=== PATIENT | female | born 1960 | race Caucasian/White ===

== ENCOUNTER → 2016-11-21 | Outpatient (CLI) | payer BC ==
--- NOTE | 2016-11-21 12:31 | CT ---
EXAMINATION TYPE: CT brain wo con DATE OF EXAM: 11/21/2016 COMPARISON: NONE HISTORY: Exostosis CT DLP: 1067 mGycm Automated exposure control for dose reduction was used. FINDINGS: Central structures are midline. There is no evidence of hydrocephalus. No acute focal lesion, mass ef fect or midline shift is seen. I do not see evidence of intracranial blood. Visualized portions of the paranasal sinuses and mastoids are clear. There is a 6 mm exostosis arisin g from the right frontal bone. IMPRESSION: 1. NO ACUTE INTRACRANIAL ABNORMALITY. 2. TINY, BENIGN-APPEARING EXOSTOSIS DESCRIBED.
--- NOTE | 2016-11-21 15:16 | NM ---
EXAMINATION TYPE: NM bone/joint limited DATE OF EXAM: 11/21/2016 COMPARISON: NONE HISTORY: Exostosis TECHNIQUE: After the intravenous administration of 19.8 mCi Tc 99m MDP. Images acquired 3 hours pos t injection. Multiple views of the head and neck are submitted. Distribution of radiopharmaceutical about the skull is normal. There is no increased activity in the region of the patient's exostosis. There is increased activity in posterior elements of the mid cervi dawood spine. IMPRESSION: 1. NO EVIDENCE OF ACTIVITY IN THE PATIENT'S EXOSTOSIS. 2. EVIDENCE OF DEGENERATIVE CHANGE IN THE CERVICAL SPINE.
== END | disposition home or self-care (01) ==
LOC: RADNMMAIN 11:12
PROVIDERS: ATTEND Family Medicine
DX: M47.812 Spondylosis without myelopathy or radiculopathy, cervical region (principal); M89.9 Disorder of bone, unspecified
CPT/HCPCS: 70450; 78300; A9503

== ENCOUNTER → 2016-12-19 | Outpatient (CLI) | payer BC ==
--- NOTE | 2016-12-20 07:32 | MM ---
Reason for exam: screening (asymptomatic). Last mammogram was performed 1 year ago. History: Patient is postmenopausal and had first child at age 35. Family history of breast cancer in maternal cousin. Physical Findings: A clinical breast exam by your physician is recommended on an annual basis and results should be correlated with mammographic findings. MG 3D Screening Mammo W/Cad Bilateral CC and MLO view(s) were taken. Prior study comparison: December 26, 2015, right breast MG work up mamm w CAD RT. December 19, 2015, bilateral MG screening mammo w CAD. There are scattered fibroglandular densities. No suspicious abnormality. No significant changes when compared with prior studies. ASSESSMENT: Negative, BI-RAD 1 RECOMMENDATION: Routine screening mammogram of both breasts in 1 year.
== END | disposition home or self-care (01) ==
LOC: RADMAMWWP 08:58
PROVIDERS: ATTEND Family Medicine
DX: Z12.31 Encounter for screening mammogram for malignant neoplasm of breast (principal)
CPT/HCPCS: 77063; G0202

== ENCOUNTER 2016-12-23 16:15 | Emergency (ER) | payer BC ==
[2016-12-23] MEDS ORDERED: SODIUM CHLORIDE 0.9% 500 ML IV STA (17:10)
[2016-12-23] MEDS ORDERED: RX INFO: IV CONTRAST WAS GIVEN 1 EACH MISC MISCELLANE PRN (17:17)
[2016-12-23] MEDS ORDERED: diphenhydrAMINE 50 MG/ML 1 ML VIAL IVP ONE (17:23)
[2016-12-23] MEDS ORDERED: FAMOTIDINE 20 MG/2 ML VIAL IV ONE (17:23)
[2016-12-23] MEDS ORDERED: methylPREDNISolone SOD SUCCI 125 MG/2 ML VIAL IV ONE (17:23)
[2016-12-23 17:31] LABS: Basophils # (A) 0.1 k/uL (0-0.2); Basophils % (A) 0 %; CH 29.5; CHCM 31.8; Eosinophils # (A) 0.2 k/uL (0-0.7); Eosinophils % (A) 1 %; HCT 47.9 % (34.0-46.0); HDW 2.22; HGB 15.4 gm/dL (11.4-16.0); Luc # (Auto) 0.12; Luc % (Auto) 1; Lymphocytes # (A) 2.3 k/uL (1.0-4.8); Lymphocytes % (A) 16 %; MCHC 32.2 g/dL (31.0-37.0); MCV 93.1 fL (80.0-100.0); Mean Platelet Volume 7.7; Monocytes # (A) 0.6 k/uL (0-1.0); Monocytes % (A) 4 %; Neutrophils # (A) 10.7 k/uL (1.3-7.7); Neutrophils % (A) 77 %; RBC 5.14 m/uL (3.80-5.40); RDW 13.2 % (11.5-15.5); WBC (Perox) 13.76
--- NOTE | 2016-12-23 17:39 | ED ---
General Adult HPI - General Chief complaint: Back Pain/Injury Stated complaint: Back Pain-Sent by for CT Time Seen by Provider: 12/23/16 17:03 Source: patient Mode of arrival: ambulatory Limitations: no limitations - History of Present Illness Initial comments: 56 -year-old female patient presents to emergency department today sent in by her primary care physician Dr. Chacon for further evaluation of back pain. Patient states that 3 or 4 days ago she had onset of midthoracic back pain that radiates around her left side to her chest. Patient states the pain is intermittent. She states the pain lasts approximately 20 minutes when it comes on. She denies ever having pain similar to this in the past. She states she has been having some dizziness as well, states this is mostly with movement of her head. She states it does feel like the world is spinning, and that she feels like she is going to pass out when this happens. Patient denies any recent rash, fever, chills, shortness breath, abdominal pain, nausea, vomiting, constipation, numbness, tingling, weakness, hematuria, dysuria, urinary urgency , urinary frequency, headache, visual changes, or any other complaints. Patient does have chronic low back pain from a previous surgery however states that this hasn't been bothering her and does not feel related. She was recently diagnosed and treated with antibiotics for an ear infection. She states Dr. Chacon did perform a chest x-ray and EKG in the office did not see any abnormalities, and sent her in here to have a CT of her aorta. - Related Data Home Medications Medication Instructions Recorded Confirmed Cholecalciferol [Vitamin D3] 4,000 unit PO DAILY 12/23/16 12/23/16 Multivitamins, Thera [Multivitamin 1 tab PO DAILY 12/23/16 12/23/16 (formulary)] Previous Rx's Medication Instructions Recorded Cyclobenzaprine [Flexeril] 10 mg PO TID #15 tab 12/23/16 Meclizine HCl 25 mg PO BID #20 tablet 12/23/16 Naproxen 500 mg PO Q12H #20 tablet 12/23/16 Allergies Allergy/AdvReac Type Severity Reaction Status Date / Time cephalexin [From Keflex] Allergy Anaphylaxis Verified 12/23/16 19:39 ciprofloxacin [From Cipro] Allergy Anaphylaxis Verified 12/23/16 19:39 Iodinated Contrast- Oral and Allergy Anaphylaxis Verified 12/23/16 19:39 IV Dye sulfamethoxazole Allergy Anaphylaxis Verified 12/23/16 19:39 [From Bactrim] trimethoprim [From Bactrim] Allergy Anaphylaxis Verified 12/23/16 19:39 Review of Systems ROS Statement: Those systems with pertinent positive or pertinent negative responses have been documented in the HPI. ROS Other: All systems not noted in ROS Statement are negative. Past Medical History Past Medical History: Thyroid Disorder History of Any Multi-Drug Resistant Organisms: None Reported Past Surgical History: Back Surgery, Cholecystectomy, Hysterectomy, Orthopedic Surgery Additional Past Surgical History / Comment(s): 1/2 thyroidectomy, rt foot Past Psychological History: No Psychological Hx Reported Smoking Status: Current every day smoker Past Alcohol Use History: Occasional Past Drug Use History: None Reported General Exam Limitations: no limitations General appearance: alert, in no apparent distress, other (This is a well- developed, well-nourished adult female patient in no acute distress. Vital signs upon presentation are Temperature 98.6F, pulse 71, respirations 20, blood pressure 153/72, pulse ox 99% on room air.) Eye exam: Present: normal appearance, PERRL, EOMI. Absent: scleral icterus, conjunctival injection, periorbital swelling ENT exam: Present: normal exam, normal oropharynx, mucous membranes moist, TM's normal bilaterally Neck exam: Present: normal inspection. Absent: tenderness, meningismus, lymphadenopathy Respiratory exam: Present: normal lung sounds bilaterally. Absent: respiratory distress, wheezes, rales, rhonchi, stridor Cardiovascular Exam: Present: regular rate, normal rhythm, normal heart sounds. Absent: systolic murmur, diastolic murmur, rubs, gallop, clicks GI/Abdominal exam: Present: soft, normal bowel sounds, other (No Abdominal tenderness.). Absent: distended, tenderness, guarding, rebound, rigid Back exam: Present: normal inspection. Absent: tenderness (No tenderness over the thoracic spine), CVA tenderness (R), CVA tenderness (L), vertebral tenderness Neurological exam: Present: alert, oriented X3, CN II-XII intact Psychiatric exam: Present: normal affect, normal mood Skin exam: Present: warm, dry, intact, normal color. Absent: rash Course Vital Signs 12/23/16 12/23/16 12/23/16 16:32 17:35 19:19 Temperature 98.6 F 98.3 F Pulse Rate 71 66 77 Respiratory 20 20 17 Rate Blood Pressure 153/72 144/67 139/79 O2 Sat by Pulse 99 99 97 Oximetry 12/23/16 20:07 Temperature 97.8 F Pulse Rate 62 Respiratory 18 Rate Blood Pressure 155/88 O2 Sat by Pulse 100 Oximetry Medical Decision Making - Medical Decision Making 56-year-old female patient presented for evaluation of mid thoracic back pain that radiates around to her left side and into her chest. She was sent in by her primary care physician for a CT of her aorta. Lab work was reviewed and was unremarkable. 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 Chest x-ray was negative. CT of the aorta was negative. Patient informed of results. I did explain to her that I feel her pain is muscular skeletal in nature. Did give her a prescription for naproxen and Flexeril. As she did have a recent ear infection and her dizziness is induced with movement of her head will treat her with meclizine for this. She is instructed to follow-up with her primary care physician for further testing and reevaluation in one to days. She is instructed to return here immediately for any new, worsening, or concerning symptoms. She verbalizes understanding and agrees this plan. - Lab Data Result diagrams: 12/23/16 17:22 12/23/16 17:22 Lab Results 12/23/16 12/23/16 12/23/16 Range/Units 17:22 17:22 17:22 WBC 14.0 H (3.8-10.6) k/uL RBC 5.14 (3.80-5.40) m/uL Hgb 15.4 (11.4-16.0) gm/dL Hct 47.9 H (34.0-46.0) % MCV 93.1 (80.0-100.0) fL MCH 30.0 (25.0-35.0) pg MCHC 32.2 (31.0-37.0) g/dL RDW 13.2 (11.5-15.5) % Plt Count 226 (150-450) k/uL Neutrophils % 77 % Lymphocytes % 16 % Monocytes % 4 % Eosinophils % 1 % Basophils % 0 % Neutrophils # 10.7 H (1.3-7.7) k/uL Lymphocytes # 2.3 (1.0-4.8) k/uL Monocytes # 0.6 (0-1.0) k/uL Eosinophils # 0.2 (0-0.7) k/uL Basophils # 0.1 (0-0.2) k/uL PT (9.0-12.0) sec INR (<1.2) APTT (22.0-30.0) sec Sodium 139 (137-145) mmol/L Potassium 4.3 (3.5-5.1) mmol/L Chloride 105 (98-107) mmol/L Carbon Dioxide 24 (22-30) mmol/L Anion Gap 10 mmol/L BUN 17 (7-17) mg/dL Creatinine 0.80 (0.52-1.04) mg/dL Est GFR (MDRD) Af Amer >60 (>60 ml/min/1.73 sqM) Est GFR (MDRD) Non-Af >60 (>60 ml/min/1.73 sqM) Glucose 93 (74-99) mg/dL Calcium 9.6 (8.4-10.2) mg/dL Magnesium 2.0 (1.6-2.3) mg/dL Total Bilirubin 0.7 (0.2-1.3) mg/dL AST 24 (14-36) U/L ALT 34 (9-52) U/L Alkaline Phosphatase 104 (38-126) U/L Total Creatine Kinase 81 (30-135) U/L CK-MB (CK-2) 1.6 (0.0-2.4) ng/mL CK-MB (CK-2) Rel Index 2.0 Troponin I <0.012 (0.000-0.034) ng/mL Total Protein 7.3 (6.3-8.2) g/dL Albumin 4.4 (3.5-5.0) g/dL Amylase 44 (30-110) U/L Lipase 79 (23-300) U/L Urine Color Urine Appearance (Clear) Urine pH (5.0-8.0) Ur Specific [place] (1.001-1.035) Urine Protein (Negative) Urine Glucose (UA) (Negative) Urine Ketones (Negative) Urine Blood (Negative) Urine Nitrite (Negative) Urine Bilirubin (Negative) Urine Urobilinogen (<2.0) mg/dL Ur Leukocyte Esterase (Negative) Urine RBC (0-5) /hpf Urine WBC (0-5) /hpf Ur Squamous Epith Cells (0-4) /hpf Urine Bacteria (None) /hpf Urine Mucus (None) /hpf 12/23/16 12/23/16 Range/Units 17:22 17:22 WBC (3.8-10.6) k/uL RBC (3.80-5.40) m/uL Hgb (11.4-16.0) gm/dL Hct (34.0-46.0) % MCV (80.0-100.0) fL MCH (25.0-35.0) pg MCHC (31.0-37.0) g/dL RDW (11.5-15.5) % Plt Count (150-450) k/uL Neutrophils % % Lymphocytes % % Monocytes % % Eosinophils % % Basophils % % Neutrophils # (1.3-7.7) k/uL Lymphocytes # (1.0-4.8) k/uL Monocytes # (0-1.0) k/uL Eosinophils # (0-0.7) k/uL Basophils # (0-0.2) k/uL PT 10.6 (9.0-12.0) sec INR 1.0 (<1.2) APTT 24.6 (22.0-30.0) sec Sodium (137-145) mmol/L Potassium (3.5-5.1) mmol/L Chloride (98-107) mmol/L Carbon Dioxide (22-30) mmol/L Anion Gap mmol/L BUN (7-17) mg/dL Creatinine (0.52-1.04) mg/dL Est GFR (MDRD) Af Amer (>60 ml/min/1.73 sqM) Est GFR (MDRD) Non-Af (>60 ml/min/1.73 sqM) Glucose (74-99) mg/dL Calcium (8.4-10.2) mg/dL Magnesium (1.6-2.3) mg/dL Total Bilirubin (0.2-1.3) mg/dL AST (14-36) U/L ALT (9-52) U/L Alkaline Phosphatase (38-126) U/L Total Creatine Kinase (30-135) U/L CK-MB (CK-2) (0.0-2.4) ng/mL CK-MB (CK-2) Rel Index Troponin I (0.000-0.034) ng/mL Total Protein (6.3-8.2) g/dL Albumin (3.5-5.0) g/dL Amylase (30-110) U/L Lipase (23-300) U/L Urine Color Yellow Urine Appearance Clear (Clear) Urine pH 5.5 (5.0-8.0) Ur Specific [place] 1.014 (1.001-1.035) Urine Protein Negative (Negative) Urine Glucose (UA) Negative (Negative) Urine Ketones Trace H (Negative) Urine Blood Negative (Negative) Urine Nitrite Negative (Negative) Urine Bilirubin Negative (Negative) Urine Urobilinogen <2.0 (<2.0) mg/dL Ur Leukocyte Esterase Trace H (Negative) Urine RBC <1 (0-5) /hpf Urine WBC 2 (0-5) /hpf Ur Squamous Epith Cells 1 (0-4) /hpf Urine Bacteria Rare H (None) /hpf Urine Mucus Occasional H (None) /hpf - Radiology Data Radiology results: report reviewed, image reviewed 2 views of the chest are obtained and showed no focal airspace opacity, pleural effusion, or pneumothorax. The cardiac silhouette size is within normal limits. The osseous structures are intact. Impression by Dr. Davison shows no acute cardiopulmonary process. CT angios thoracic and abdominal aorta report reviewed in its entirety. Impression by Dr. Wagner Morales shows no acute osseous fracture, abnormal fluid collection, or evidence of solid organ injury and the thorax, abdomen, or pelvis. Specifically the thoracic aorta has normal appearance. The abdominal aorta has normal appearance as does the aortoiliac inflow. No aneurysmal dilation. No dissection. No evidence of hemorrhage. Disposition Clinical Impression: Vertigo, Thoracic back pain Disposition: HOME SELF-CARE Condition: Good Instructions: Vertigo (ED), Back Pain (ED) Additional Instructions: Take medications as directed. Follow-up with her primary care physician for recheck in 1-2 days. Return here immediately for any new, worsening, or concerning symptoms. Prescriptions: Cyclobenzaprine [Flexeril] 10 mg PO TID #15 tab Meclizine HCl 25 mg PO BID #20 tablet Naproxen 500 mg PO Q12H #20 tablet Referrals: Kyler Chacon MD [Primary Care Provider] - 1-2 days Time of Disposition: 19:55
[2016-12-23 17:40] LABS: Appearance,Urine Clear (Clear); Bacteria,Urine Rare /hpf; Bilirubin,Urine Negative (Negative); Glucose,Urine (UA) Negative (Negative); Ketones,Urine Trace (Negative); Leukocyte Esterase,Urine Trace (Negative); Mucus,Urine Occasional /hpf; Nitrite,Urine Negative (Negative); PH, Urine 5.5 (5.0-8.0); Particle Count 3259; Protein,Urine Negative (Negative); RBC,Urine <1 /hpf (0-5); Specific Gravity,Urine 1.014 (1.001-1.035); Squamous Epithelial Cell,Urine 1 /hpf (0-4); UA Billing (MACRO vs. MICRO) MICRO; Urobilinogen,Urine <2.0 mg/dL (<2.0); WBC,Urine 2 /hpf (0-5)
[2016-12-23 17:43] LABS: Partial Thromboplastin Time 24.6 sec (22.0-30.0); Prothrombin Time 10.6 sec (9.0-12.0)
[2016-12-23 17:49] LABS: ALT 34 U/L (9-52); AST 24 U/L (14-36); Alkaline Phosphatase 104 U/L (38-126); Amylase 44 U/L (30-110); Anion Gap 10 mmol/L; Blood Urea Nitrogen 17 mg/dL (7-17); Calcium 9.6 mg/dL (8.4-10.2); Carbon Dioxide 24 mmol/L (22-30); Chloride 105 mmol/L (98-107); Glucose 93 mg/dL (74-99); Non-African American GFR(MDRD) >60 (>60 ml/min/1.73 sqM); Potassium 4.3 mmol/L (3.5-5.1); Sodium 139 mmol/L (137-145); Total Bilirubin 0.7 mg/dL (0.2-1.3); Total Protein 7.3 g/dL (6.3-8.2)
[2016-12-23 18:00] LABS: Creatine Kinase 81 U/L (30-135)
[2016-12-23 18:12] LABS: Creatine Kinase MB 1.6 ng/mL (0.0-2.4); Troponin I <0.012 ng/mL (0.000-0.034)
--- NOTE | 2016-12-23 18:29 | XR ---
EXAMINATION TYPE: XR chest 2V DATE OF EXAM: 12/23/2016 COMPARISON: NONE HISTORY: Pain TECHNIQUE: Frontal and lateral views of the chest are obtained. FINDINGS: There is no focal air space opacity, pleural effusion, or pneumothorax seen. The cardiac silhouette size is within normal limits. The osseous structures are intact. IMPRESSION: No acute cardiopulmonary process.
--- NOTE | 2016-12-23 19:38 | CT ---
EXAMINATION TYPE: CT ANGIO THORACIC/ABD AORTA DATE OF EXAM: 12/23/2016 COMPARISON: None. HISTORY: Upper/Lower back pain. CT DLP: 1814.8 mGycm. Automated Exposure Control for Dose Reduction was Utilized. CONTRAST: CT scan of the thorax, abdomen and pelvis is performed without and with IV Contrast, patien t injected with 100 mL of Omnipaque 350. FINDINGS: LUNGS: The lungs are grossly clear, there is no concerning parenchymal mass or nodule identified. T here is no pleural effusion or pneumothorax seen. The tracheobronchial tree is patent. MEDIASTINUM: The thoracic aorta has normal appearance. The heart is unremarkable as is the pericardia l space. There are no greater than 1 cm hilar or mediastinal lymph nodes. OTHER: No additional significant abnormality is seen. LIVER/GB: No significant abnormality is appreciated. PANCREAS: No significant abnormality is seen. SPLEEN: No significant abnormality is seen. ADRENALS: No significant abnormality is seen. KIDNEYS: No significant abnormality is seen. BOWEL: No significant abnormality is seen. GENITAL ORGANS: No gross abnormality seen. LYMPH NODES: No greater than 1cm abdominal or pelvic lymph nodes are appreciated. OSSEOUS STRUCTURES: No significant abnormality is seen. ARTERIAL VASCULATURE: The abdominal aorta has normal appearance as does the aorto iliac inflow. No an eurysmal dilation. No dissection. No evidence of hemorrhage. OTHER: No significant additional abnormality is seen. IMPRESSION: NO ACUTE OSSEOUS FRACTURE, ABNORMAL FLUID COLLECTION, OR EVIDENCE OF SOLID ORGAN INJURY I N THE THORAX, ABDOMEN, OR PELVIS.
[2016-12-23 20:07] VITALS: BP 155/88; PULSE 62; RESP 18; TEMP 97.8
== END 2016-12-23 20:12 | disposition home or self-care (01) ==
LOC: EC 16:15
DX: M54.6 Pain in thoracic spine (principal); R42 Dizziness and giddiness; E07.9 Disorder of thyroid, unspecified; F17.200 Nicotine dependence, unspecified, uncomplicated; Z79.899 Other long term (current) drug therapy; Z88.1 Allergy status to other antibiotic agents; Z88.2 Allergy status to sulfonamides; Z91.041 Radiographic dye allergy status
CPT/HCPCS: 99284 ×2; 96374 ×2; 96375 ×3; 36415; 80053; 82150; 82550; 82553; 83690; 83735; 84484; 85025; 85610; 85730; 81001; 87086; 71020; 75635; 71275; J1200; J2930; Q9967

== ENCOUNTER → 2017-08-06 | Outpatient (CLI) | payer BC ==
--- NOTE | 2017-08-06 15:57 | US ---
EXAMINATION TYPE: US thyroid st tissue head/neck DATE OF EXAM: 08/06/2017 COMPARISON: 09/19/2014 CLINICAL HISTORY: 57-year-old female E04.1 Nontoxic single thyroid nodule. F/U previous. Patient stat us post right thyroidectomy. TECHNIQUE: Multiple sonographic images of the thyroid gland are obtained. FINDINGS: GLAND SIZE: Left Lobe: 5.0 x 2.1 x 1.6 cm Overall Parenchyma: heterogeneous Isthmus Thickness: 0.4 cm NODULES LEFT: # of nodules measured on left: 4 1. 0.4 X 0.4 x 0.3 cm hypoechoic solid nodule at the upper pole with well-defined margins; This no dule is taller than wide and shows intranodular vascularity. Prior size: 0.4 x 0.4 x 0.2 cm 2. 1.1 X 1.0 x 0.8 cm hypoechoic solid nodule at the mid pole with well-defined margins; This nodul e is wider than tall and shows intranodular vascularity. Prior size: 0.9 x 0.7 x 0.9 cm 3. 0.5 X 0.5 x 0.6 cm hypoechoic solid nodule at the lower pole with well-defined margins; This nodu le is wider than tall and shows intranodular vascularity. Prior size: 0.4 x 0.4 x 0.4 cm 4. 0.7 X 0.4 x 0.7 cm hypoechoic solid nodule at the mid/medial pole with well-defined margins; Thi s nodule is wider than tall and shows intranodular vascularity. Prior size: Not visualized on prior Bilateral neck scanned, no evidence of lymphadenopathy. Nodules scattered throughout left lobe. IMPRESSION: 1. Status post right thyroidectomy. 2. Multiple nodules on the left, largest measuring 1.1 cm versus 0.9 cm, previously, not significantl y changed. 3. A 7 mm left mid pole nodule may be new. Continued follow-up as indicated.
== END | disposition home or self-care (01) ==
LOC: RADUSWWP 15:12
PROVIDERS: ATTEND Family Medicine
DX: E04.2 Nontoxic multinodular goiter (principal); E89.0 Postprocedural hypothyroidism
CPT/HCPCS: 76536

== ENCOUNTER → 2017-11-19 | Outpatient (CLI) | payer BC ==
--- NOTE | 2017-11-19 21:04 | MR ---
EXAMINATION TYPE: MR iac wo/w con DATE OF EXAM: 11/19/2017 COMPARISON: CT 11/21/2016 HISTORY: 57-year-old female Vertigo / Left facial numbness TECHNIQUE: Multiplanar, multisequence images of the brain and brainstem were acquired before and aft er administration of 7.5 mL IV Gadavist. Diffusion weighted imaging was performed. Additional coned -down sequences through the internal auditory canals and posterior cranial fossa before and after IV contrast administration. FINDINGS: Diffusion weighted images demonstrate no evidence of an acute ischemic lesion in the brain. T2/FLAIR weighted sequences show no white matter signal abnormality. Midline structures demonstrate normal morphology. The craniocervical junction is normal. Ventricles and sulci are of normal caliber. There is no evidence of an acute intracranial hemorrhage, infarct, mass, mass-effect or an extra-axia l fluid collection. 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 There is no cerebellopontine angle mass. The internal auditory canals are symmetric. Brainstem and skull base abnormalities are not seen. Post contrast images demonstrate no evidence of pathologic enhancement in the posterior cranial shirley a or the internal auditory canals. There is no abnormal enhancement of the labyrinths. There is mild mucosal thickening within the ethmoid air cells and frontal sinuses. Globes appear inta ct IMPRESSION: 1.No acute intracranial abnormality seen. 2. 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 Clinically correla te. 3. Otherwise, no specific abnormality on acoustic MRI. 4. Mild chronic ethmoid and frontal sinus disease.
== END | disposition home or self-care (01) ==
LOC: RADMRIMAIN 07:27
PROVIDERS: ATTEND Otolaryngology
DX: Q01.9 Encephalocele, unspecified (principal)
CPT/HCPCS: 70553; A9581

== ENCOUNTER → 2018-01-08 | Outpatient (CLI) | payer BC ==
--- NOTE | 2018-01-17 16:08 | HM ---
HOLTER MONITOR REPORT [id number] Holter monitor shows sinus mechanism with a few short runs of non- sustained atrial tachycardia. No bradyarrhythmias. MMODL / IJN: [id number] /
== END | disposition home or self-care (01) ==
LOC: RADECHMAIN 12:35
PROVIDERS: ATTEND Psychiatry & Neurology Neurology
DX: I47.1 Supraventricular tachycardia (principal)
CPT/HCPCS: 93225; 93226

== ENCOUNTER → 2018-01-14 | Outpatient (CLI) | payer BC ==
--- NOTE | 2018-01-15 10:45 | MM ---
Reason for exam: screening (asymptomatic). Last mammogram was performed 1 year and 1 month ago. History: Patient is postmenopausal and had first child at age 35. Family history of breast cancer in maternal cousin. Physical Findings: A clinical breast exam by your physician is recommended on an annual basis and results should be correlated with mammographic findings. MG 3D Screening Mammo W/Cad Bilateral CC and MLO view(s) were taken. Prior study comparison: December 19, 2016, bilateral MG 3d screening mammo w/cad. December 26, 2015, right breast MG work up mamm w CAD RT. There are scattered fibroglandular densities. No suspicious abnormality. No significant changes when compared with prior studies. ASSESSMENT: Negative, BI-RAD 1 RECOMMENDATION: Routine screening mammogram of both breasts in 1 year.
== END | disposition home or self-care (01) ==
LOC: RADMAMWWP 11:24
PROVIDERS: ATTEND Family Medicine
DX: Z12.31 Encounter for screening mammogram for malignant neoplasm of breast (principal)
CPT/HCPCS: 77063; 77067

== ENCOUNTER → 2018-08-07 | Outpatient (CLI) | payer BC ==
--- NOTE | 2018-08-07 16:35 | US ---
EXAMINATION TYPE: US thyroid st tissue head/neck DATE OF EXAM: 08/07/2018 COMPARISON: US 08/06/2017 CLINICAL HISTORY: E04.1 Nontoxic uninodular goiter. GLAND SIZE: Right Lobe: Surgically absent Left Lobe: 4.0 x 1.3 x 1.6 cm Overall Parenchyma: heterogeneous Isthmus Thickness: 0.4 cm NODULES RIGHT: # of nodules measured on right: 0 LEFT: # of nodules measured on left: 4 1. 0.9 X 1.0 x 0.7 cm hypoechoic solid nodule at the mid pole with well-defined margins; . This no dule is wider than tall and shows intranodular vascularity. Prior size: 1.1 x 1.0 x 0.8 cm 2. 0.9 X 0.6 x 0.8 cm hypoechoic solid nodule at the upper pole with well-defined margins; . This n odule is wider than tall and shows intranodular vascularity. Prior size: 0.7 x 0.4 x 0.7 cm 3. 0.6 X 0.4 x 0.5 cm hypoechoic mixed nodule at the lower pole with well-defined margins; . This n odule is wider than tall and shows intranodular vascularity. Prior size: 0.5 x 0.5 x 0.6 cm 4. 0.4 X 0.3 x 0.4 cm hypoechoic solid nodule at the upper pole with well-defined margins; . This n odule is wider than tall and shows intranodular vascularity. Prior size: 0.4 x 0.3 x 0.4 cm ISTHMUS: # of nodules measured in the isthmus: 0 Bilateral neck scanned, no evidence of lymphadenopathy. Hypervascular, heterogeneous left thyroid gland IMPRESSION: Multinodular thyroid goiter with numerous left thyroid nodules appearing similar in size to the prior examination. Right lobe is surgically absent.
== END | disposition home or self-care (01) ==
LOC: RADUSWWP 15:41
PROVIDERS: ATTEND Family Medicine
DX: E04.2 Nontoxic multinodular goiter (principal); E89.0 Postprocedural hypothyroidism
CPT/HCPCS: 76536

== ENCOUNTER → 2018-11-16 | Outpatient (CLI) | payer BC ==
--- NOTE | 2018-11-16 09:19 | USB ---
Reason for exam: clinical finding. History: Patient is postmenopausal and had first child at age 35. Family history of breast cancer in maternal cousin. Indicated problem(s): pain in the left breast. Physical Findings: Nurse Summary: all soft, nodular, movable (nurse ts). US Breast RT Right complete breast ultrasound includes all four quadrants, the retroareolar region and axilla. Finding demonstrates no cystic or solid lesion seen. No suspicious findings. No ultrasound correlate for the patient's pain. These results were verbally communicated with the patient and result sheet given to the patient on 11/16/18. ASSESSMENT: Negative, BI-RAD 1 RECOMMENDATION: Return to routine screening mammogram schedule for both breasts. Back on schedule for December 2018.
== END | disposition home or self-care (01) ==
LOC: RADUSWWP 06:42
PROVIDERS: ATTEND Family Medicine
DX: N64.4 Mastodynia (principal)

== ENCOUNTER → 2019-01-21 | Outpatient (CLI) | payer BC ==
--- NOTE | 2019-01-22 13:49 | MM ---
Reason for exam: screening (asymptomatic). Last mammogram was performed 1 year ago. History: Patient is postmenopausal and had first child at age 35. Family history of breast cancer in maternal cousin and breast cancer in maternal aunt at age 75. Physical Findings: A clinical breast exam by your physician is recommended on an annual basis and results should be correlated with mammographic findings. MG 3D Screening Mammo W/Cad Bilateral CC and MLO view(s) were taken. Prior study comparison: January 14, 2018, bilateral MG 3d screening mammo w/cad. December 19, 2016, bilateral MG 3d screening mammo w/cad. There are scattered fibroglandular densities. No significant changes when compared with prior studies. ASSESSMENT: Benign, BI-RAD 2 RECOMMENDATION: Routine screening mammogram of both breasts in 1 year.
== END | disposition home or self-care (01) ==
LOC: RADMAMWWP 14:12
PROVIDERS: ATTEND Family Medicine
DX: Z12.31 Encounter for screening mammogram for malignant neoplasm of breast (principal)
CPT/HCPCS: 77063; 77067

== ENCOUNTER → 2019-09-15 | Outpatient (CLI) | payer BC ==
--- NOTE | 2019-09-15 10:05 | US ---
EXAMINATION TYPE: US thyroid st tissue head/neck DATE OF EXAM: 09/15/2019 COMPARISON: CLINICAL HISTORY: E04.1 THYROID NODULE. Follow up thyroid nodules. Right thyroid removed. No thyroi d meds. GLAND SIZE: Right Lobe- Surgically absent Left Lobe: 4.0 x 1.7 x 1.9 cm Overall Parenchyma: heterogeneous Isthmus Thickness: 0.4 cm NODULES LEFT: # of nodules measured on left: 4 1. 0.9 X 0.7 x 0.9 cm hypoechoic nodule at the mid pole with well-defined margins. This nodule is taller than wide and shows intranodular vascularity. Prior size: 0.7 x 1.0 x 0.7 cm 2. 0.7 X 0.5 x 0.7 cm hypoechoic nodule at the upper pole with well-defined margins. This nodule is taller than wide and shows intranodular vascularity. Prior size: 0.9 x 0.6 x 0.8 cm 3. 0.6 X 0.4 x 0.4 cm hypoechoic nodule at the lower pole with well-defined margins. This nodule is wide as tall and shows intranodular vascularity. Prior size: 0.6 x 0.4 x 0.5 cm 4. 0.5 X 0.4 x 0.3 cm hypoechoic nodule at the upper pole with well-defined margins. This nodule is wider than tall and shows intranodular vascularity. Prior size: 0.4 x 0.3 x 0.4 cm ISTHMUS: # of nodules measured in the isthmus: 0 Bilateral neck scanned, no evidence of lymphadenopathy. IMPRESSION: Postoperative changes right thyroid lobe. Stable nonspecific thyroid nodularity.
== END | disposition home or self-care (01) ==
LOC: RADUSWWP 09:28
PROVIDERS: ATTEND Otolaryngology
DX: Z98.890 Other specified postprocedural states (principal); E04.1 Nontoxic single thyroid nodule
CPT/HCPCS: 76536

== ENCOUNTER → 2020-01-27 | Outpatient (CLI) | payer BC ==
--- NOTE | 2020-01-28 13:47 | MM ---
Reason for exam: screening (asymptomatic). Last mammogram was performed 1 year ago. History: Patient is postmenopausal and had first child at age 35. Family history of breast cancer in maternal cousin and breast cancer in maternal aunt at age 75. Physical Findings: A clinical breast exam by your physician is recommended on an annual basis and results should be correlated with mammographic findings. MG 3D Screening Mammo W/Cad Bilateral CC and MLO view(s) were taken. XCCL view(s) were taken of the left breast. Prior study comparison: January 21, 2019, bilateral MG 3d screening mammo w/cad. January 14, 2018, bilateral MG 3d screening mammo w/cad. There are scattered fibroglandular densities. No significant changes when compared with prior studies. ASSESSMENT: Negative, BI-RAD 1 RECOMMENDATION: Routine screening mammogram of both breasts in 1 year.
== END | disposition home or self-care (01) ==
LOC: RADMAMWWP 07:02
PROVIDERS: ATTEND Family Medicine
DX: Z12.31 Encounter for screening mammogram for malignant neoplasm of breast (principal)
CPT/HCPCS: 77063; 77067

== ENCOUNTER → 2020-10-03 | Outpatient (CLI) | payer BC ==
--- NOTE | 2020-10-03 13:49 | US ---
EXAMINATION TYPE: US thyroid st tissue head/neck DATE OF EXAM: 10/03/2020 COMPARISON: US CLINICAL HISTORY: E04.1 Thyroid nodule. Right thyroidectomy GLAND SIZE: Right Lobe: surgically removed; no residual thyroid tissue seen. Left Lobe: 4.3 x 1.9 x 1.8 cm Overall Parenchyma: heterogeneous Isthmus Thickness: 0.4 cm NODULES LEFT: # of nodules measured on left: 4 largest seen of multiple nodules and as previously documen jose armando 1. 0.9 X 0.8 x 0.5 cm, upper pole lateral, mixed cystic and solid, hypoechoic nodule, which is wide r than tall, with smooth margins, without echogenic foci. Prior size: 0.7 x 0.5 x 0.7 cm 2. 0.4 X 0.5 x 0.4 cm, upper medial pole, solid or almost completely solid, hypoechoic nodule, whi ch is wider than tall, with smooth margins, without echogenic foci. Prior size: 0.5 x 0.4 x 0.3 cm 3. 1.0 X 1.0 x 0.9 cm, mid lower pole, mixed cystic and solid, hypoechoic nodule, which is wider th an tall, with smooth margins, with echogenic foci. Prior size: 0.9 x 0.7 x 0.9 cm 4. 0.5 X 0.4 x 0.4 cm, lower pole, spongiform, hypoechoic nodule, which is wide as is tall, with sm ooth margins, without echogenic foci. Prior size: 0.6 x 0.4 x 0.4 cm ISTHMUS: # of nodules measured in the isthmus: 0 Bilateral neck scanned: lymph node seen superior to left thyroid = 1.6 x 0.7 x 0.7cm. IMPRESSION: 1. Right thyroid gland is surgically absent. 2. Left thyroid nodules are overall similar to the prior exam. 2017 ACR TI-RADS LEVEL: TR-RADS 4 - Moderately Suspicious: Follow if > 1 cm, FNA if > 1.5 cm *Highest TI-RADS level nodule reported
== END | disposition home or self-care (01) ==
LOC: RADUSWWP 09:31
PROVIDERS: ATTEND Otolaryngology
DX: E04.1 Nontoxic single thyroid nodule (principal)
CPT/HCPCS: 76536

== ENCOUNTER → 2021-08-16 | Outpatient (CLI) | payer BC ==
--- NOTE | 2021-08-17 12:05 | MM ---
Reason for Exam: Screening (asymptomatic). Last mammogram was performed 1 year(s) and 6 month(s) ago. Patient History: Menarche at age 12. First Full-Term at age 35. Late child-bearing (after 30). Hysterectomy at age 37. Postmenopausal. Maternal cousin had breast cancer. Maternal aunt had breast cancer, age 75. Risk Values: Joyce 5 year model risk: 2.2%. NCI Lifetime model risk: 10.9%. Film Views: Bilateral CC views were taken. Bilateral MLO views were taken. Prior Study Comparison: 01/14/2018 Bilateral Screening Mammogram, [facility]. 01/21/2019 Bilateral Screening Mammogram, [facility]. 01/27/2020 Bilateral Screening Mammogram, [facility]. Tissue Density: There are scattered fibroglandular densities. Findings: Analyzed By CAD. Benign-appearing bilateral axillary lymph nodes are redemonstrated. There is no suspicious group of microcalcifications or new suspicious mass in either breast. Overall Assessment: Negative, BI-RAD 1 Management: Screening Mammogram of both breasts in 1 year. A clinical breast exam by your physician is recommended on an annual basis and results should be correlated with mammographic findings. Electronically signed and approved by: Zeb Gardner M.D.
== END | disposition home or self-care (01) ==
LOC: RADMAMWWP 18:15
PROVIDERS: ATTEND Family Medicine
DX: Z12.31 Encounter for screening mammogram for malignant neoplasm of breast (principal)
CPT/HCPCS: 77063; 77067

== ENCOUNTER → 2021-10-09 | Outpatient (CLI) | payer BC ==
--- NOTE | 2021-10-09 10:11 | US ---
EXAMINATION TYPE: US venous doppler duplex LE LT DATE OF EXAM: 10/09/2021 10:02 AM COMPARISON: NONE CLINICAL HISTORY: M25.562 LEFT KNEE PAIN. Left medial knee pain x 1 week, no injury, no h/o dvt SIDE PERFORMED: Left TECHNIQUE: The lower extremity deep venous system is examined utilizing real time linear array sonog abigail with graded compression, doppler sonography and color-flow sonography. VESSELS IMAGED: Common Femoral Vein Deep Femoral Vein Greater Saphenous Vein * Femoral Vein Popliteal Vein Small Saphenous Vein * Proximal Calf Veins (* superficial vessels) Left Leg: Negative for DVT *called office twice, no answer IMPRESSION: Grayscale, color doppler, spectral doppler imaging performed of the deep veins of the lo wer extremities. There is normal flow, compressibility, vascular waveforms.
== END | disposition home or self-care (01) ==
LOC: RADUSWWP 09:42
PROVIDERS: ATTEND Family Medicine
DX: M25.562 Pain in left knee (principal)

== ENCOUNTER → 2021-10-15 | Outpatient (CLI) | payer BC ==
--- NOTE | 2021-10-15 09:31 | US ---
EXAMINATION TYPE: US thyroid st tissue head/neck DATE OF EXAM: 10/15/2021 COMPARISON: NONE CLINICAL HISTORY: E04.1 THYROID NODULE. History of thyroid nodules. Right thyroidectomy GLAND SIZE: Right Lobe: Surgically absent Left Lobe: 4.6 x 1.8 x 1.8 cm Overall Parenchyma: heterogeneous Isthmus Thickness: 0.4 cm NODULES RIGHT: # of nodules measured on right: 0 LEFT: # of nodules measured on left: 2 1. 0.8 X 0.9 x 0.7 cm, upper , solid or almost completely solid, hypoechoic nodule, which is wider than tall, with smooth margins, without echogenic foci. Prior size: 0.9 x 0.8 x 0.5 cm 2. 1.2 X 1.0 x 1.0 cm, mid , solid or almost completely solid, hypoechoic nodule, which is wider t brown tall, with smooth margins, without echogenic foci. TR 4 Prior size: 1.0 x 1.0 x 0.9 cm ISTHMUS: # of nodules measured in the isthmus: 0 Bilateral neck scanned, no evidence of lymphadenopathy. IMPRESSION: Moderately suspicious nodule left lobe thyroid. Follow-up in one year is recommended. 2017 ACR TI-RADS LEVEL: TR-RADS 4 - Moderately Suspicious: Follow if > 1 cm, FNA if > 1.5 cm *Highest TI-RADS level nodule reported
== END | disposition home or self-care (01) ==
LOC: RADUSWWP 08:42
PROVIDERS: ATTEND Otolaryngology
DX: E04.1 Nontoxic single thyroid nodule (principal)
CPT/HCPCS: 76536

== ENCOUNTER → 2022-08-30 | Outpatient (CLI) | payer BC ==
--- NOTE | 2022-09-02 12:18 | MM ---
Reason for Exam: Screening (asymptomatic). Last mammogram was performed 1 year(s) and 1 month(s) ago. Patient History: Menarche at age 12. First Full-Term at age 35. Late child-bearing (after 30). Hysterectomy at age 37. Postmenopausal. Maternal cousin had breast cancer, age 34. Maternal aunt had breast cancer, age 75. Risk Values: Joyce 5 year model risk: 2.2%. NCI Lifetime model risk: 10.6%. Physical Findings: Physical Exam Performed Before Images Prior Study Comparison: 01/21/2019 Bilateral Screening Mammogram, [facility]. 01/27/2020 Bilateral Screening Mammogram, [facility]. 08/16/2021 Bilateral MG 3D screening mammo w/cad, [facility]. Tissue Density: There are scattered fibroglandular densities. Findings: Analyzed By CAD. Pattern appears symmetrical and stable. No significant interval change is evident. No suspicious groups of microcalcifications, spiculated or lobular masses, architectural distortion or other secondary signs of malignancy are mammographically apparent. Overall Assessment: Benign, BI-RAD 2 Management: Screening Mammogram of both breasts in 1 year. A negative mammogram report should not preclude additional follow up of suspicious palpable abnormalities. Patient should continue monthly self breast exam. A clinical breast exam by your physician is recommended on an annual basis and results should be correlated with mammographic findings. Electronically signed and approved by: Matias Grullon D.O. Radiologis
== END | disposition home or self-care (01) ==
LOC: RADMAMWWP 10:43
PROVIDERS: ATTEND Family Medicine
DX: Z12.31 Encounter for screening mammogram for malignant neoplasm of breast (principal); Z78.0 Asymptomatic menopausal state; Z80.3 Family history of malignant neoplasm of breast
CPT/HCPCS: 77063; 77067

== ENCOUNTER → 2022-12-13 | Outpatient (CLI) | payer BC ==
--- NOTE | 2022-12-13 12:28 | US ---
EXAMINATION TYPE: US thyroid st tissue head/neck DATE OF EXAM: 12/13/2022 COMPARISON: US CLINICAL INDICATION: Female, 62 years old with history of E04.1 NONTOXIC SINGLE THYROID NODULE; F/U n odules, right thyroid surgically absent GLAND SIZE: Left Lobe: 4.2 x 2.1 x 1.3 cm Overall Parenchyma: heterogenous Isthmus Thickness: 0.5 cm NODULES LEFT: # of nodules measured on left: 2 1. 1.1 X 1.0 x 0.9 cm, mid , solid or almost completely solid, hypoechoic nodule, which is wider th an tall, with smooth margins, without echogenic foci. Prior size: 1.2 x 1.0 x 1.0 cm 2. 0.9 X 0.7 x 0.7 cm, upper, solid or almost completely solid, hypoechoic nodule, which is wider than tall, with smooth margins, without echogenic foci. Prior size: 0.9 x 0.8 x 0.7 cm ISTHMUS: # of nodules measured in the isthmus: 0 Bilateral neck scanned, no evidence of lymphadenopathy. Multiple nodules left thyroid, largest two me asured, nodules appear stable. IMPRESSION: Mildly Suspicious: FNA if ? 2.5 cm; Follow if ? 1.5 cm at 1, 3, and 5 y 2017 ACR TI-RADS LEVEL: TR3 *Highest TI-RADS level nodule reported
== END | disposition home or self-care (01) ==
LOC: RADUSWWP 11:53
PROVIDERS: ATTEND Otolaryngology
DX: E04.2 Nontoxic multinodular goiter (principal)
CPT/HCPCS: 76536

== ENCOUNTER → 2023-09-01 | Outpatient (CLI) | payer BC ==
--- NOTE | 2023-09-02 09:10 | MM ---
Reason for Exam: Screening (asymptomatic). Last screening mammogram was performed 12 month(s) ago. Patient History: Menarche at age 12. First Full-Term at age 35. Late child-bearing (after 30). Hysterectomy at age 37. Postmenopausal. Maternal cousin had breast cancer, age 34. Maternal aunt had breast cancer, age 75. Risk Values: Joyce 5 year model risk: 2.3%. NCI Lifetime model risk: 10.3%. Prior Study Comparison: 01/27/2020 Bilateral Screening Mammogram, [facility]. 08/16/2021 Bilateral MG 3D screening mammo w/cad, [facility]. 08/30/2022 Bilateral MG 3D screening mammo w/cad, [facility]. Tissue Density: There are scattered areas of fibroglandular density. Findings: Analyzed By CAD. There is no suspicious group of microcalcifications or new suspicious mass in either breast. Overall Assessment: Negative, BI-RAD 1 Management: Screening Mammogram of both breasts in 1 year. . Patient should continue monthly self-breast exams. A clinical breast exam by your physician is recommended on an annual basis. This exam should not preclude additional follow-up of suspicious palpable abnormalities. Note on Joyce scores and lifetime risk: 1. A Joyce score greater than 3% is considered moderate risk. If this is the case, consider specialist referral to assess eligibility for a risk reducing agent. 2. If overall lifetime risk for the development of breast cancer is 20% or higher, the patient may qualify for future screening with alternating mammogram and breast MRI. Electronically signed and approved by: Cesario Dalal M.D. Radiologis
== END | disposition home or self-care (01) ==
LOC: RADMAMWWP 09:36
PROVIDERS: ATTEND Family Medicine
DX: Z12.31 Encounter for screening mammogram for malignant neoplasm of breast (principal); Z80.3 Family history of malignant neoplasm of breast; Z78.0 Asymptomatic menopausal state
CPT/HCPCS: 77063; 77067

== ENCOUNTER → 2023-12-22 | Outpatient (CLI) | payer MEDICARE, BC ==
--- NOTE | 2023-12-22 08:57 | CTL ---
EXAMINATION TYPE: CT Low Dose Lung DATE OF EXAM: 12/22/2023 8:15 AM CLINICAL INDICATION: Female, 63 years old with history of Z87.891 nicotine dependence; SMOKER , histo ry of tobacco use. COMPARISON: 12/23/2016. TECHNIQUE: Multiple axial non-contrast scans were obtained from approximately the lung apices through the upper abdomen. Coronal and sagittal reformatted images were obtained. Low dose technique was uti lized. CT DLP: 81 mGycm, Automated exposure control for dose reduction was used. CT Contrast: Contrast used: None Oral contrast used: None FINDINGS: ======== Lack of intravenous contrast and low dose technique limits the evaluation of the vascular and soft ti ssue structures. LUNGS: No evidence of pulmonary fibrosis. No evidence of focal consolidation, pneumothorax or pleural effusion. Centrilobular emphysema changes. Nodules: RUL: None. RML: None. RLL: None. [place]: None. LLL: None. AIRWAY: Patent and unremarkable. HEART: Size within normal limits. MEDIASTINUM: No gross evidence of adenopathy. VASCULATURE: No aortic aneurysm. MUSCULOSKELETAL: Moderate disc degeneration changes are present throughout the thoracolumbar spine. SOFT TISSUES/LYMPH NODES: Unremarkable. LOWER NECK: No significant findings. UPPER ABDOMEN: Gallbladder surgically absent. IMPRESSION: 1. No clinically significant pulmonary nodules. 2. Mild emphysema. CT LUNG RAD AND CT CHEST RECOMMENDATION: Lung-Rad 2 Benign Appearance or Behavior: Continue annual sc reening with LDCT in 12 months. S Modifier (other clinically significant findings): None Recommend smoking cessation (if current smoker), or continuation of smoking cessation (if prior smoke r). Annual screening for lung cancer with low-dose computed tomography is recommended in adults ages 55 to 77 years who have a 30 pack-year smoking history and currently smoke or have quit within the pa st 15 years. Screening should be discontinued once a person has not smoked for 15 years or develops a health problem that substantially limits life expectancy or the ability or willingness to have curat josse lung surgery. Lung rads 2021 [email or web address] [facility], , 12/22/2023 8:55 AM
== END | disposition home or self-care (01) ==
LOC: RADCTMAIN 07:33
PROVIDERS: ATTEND Family Medicine
DX: Z12.2 Encounter for screening for malignant neoplasm of respiratory organs (principal); J43.9 Emphysema, unspecified; F17.210 Nicotine dependence, cigarettes, uncomplicated
CPT/HCPCS: 71271

== ENCOUNTER → 2023-12-22 | Outpatient (CLI) | payer MEDICARE, BC ==
--- NOTE | 2023-12-22 08:41 | US ---
EXAMINATION TYPE: US thyroid st tissue head/neck DATE OF EXAM: 12/22/2023 COMPARISON: 12/13/2022 CLINICAL INDICATION: Female, 63 years old with history of E04.1 SINGLE NODULE; rt thyroidectomy, f/u nodules on left GLAND SIZE: Right Lobe: Surgically absent Left Lobe: 4.2 x 2.1 x 1.3 cm Overall Parenchyma: heterogeneous Isthmus Thickness: 0.5 cm NODULES RIGHT: Surgically absent LEFT: # of nodules measured on left: multiple, measured largest 2 1. 1.0 X 1.0 x 0.9 cm, mid , Prior size: 1.0 x 1.0 x 0.9 cm TIRADS Score: 4 TIRADS Category 4: Moderately Suspicious Composition: Solid or almost completely solid (2 points). Echogenicity: Hypoechoic (2 points). Shape: Wider than tall (0 points). Margin: Smooth (0 points). Echogenic foci: None or large comet-tail artifacts (0 points) Recommendation: If >1.5cm: FNA; If >1cm: Follow up at 1,2, 3,5 years 2. 1.0 X 0.8 x 0.7 cm, upper, Prior size: 0.9 x 0.7 x 0.7 cm TIRADS Score: 4 TIRADS Category 4: Moderately Suspicious Composition: Solid or almost completely solid (2 points). Echogenicity: Hypoechoic (2 points). Shape: Wider than tall (0 points). Margin: Smooth (0 points). Echogenic foci: None or large comet-tail artifacts (0 points) Recommendation: If >1.5cm: FNA; If >1cm: Follow up at 1,2, 3,5 years ISTHMUS: # of nodules measured in the isthmus: 0 Bilateral neck scanned, no evidence of lymphadenopathy. IMPRESSION: Stable left thyroid nodules that meet criteria for follow-up. 2017 ACR TI-RADS LEVEL: TR-RADS 4 - Moderately Suspicious: Follow if > 1 cm, FNA if > 1.5 cm *Highest TI-RADS level nodule reported [facility], , 12/22/2023 8:38 AM
== END | disposition home or self-care (01) ==
LOC: RADUSWWP 07:32
PROVIDERS: ATTEND Family Medicine
DX: E04.1 Nontoxic single thyroid nodule (principal)
CPT/HCPCS: 76536

== ENCOUNTER → 2024-09-03 | Outpatient (CLI) | payer MEDICARE ==
--- NOTE | 2024-09-03 17:00 | US ---
EXAMINATION TYPE: US thyroid st tissue head/neck DATE OF EXAM: 09/03/2024 COMPARISON: US CLINICAL INDICATION: Female, 64 years old with history of E04.1 NONTOXIC SINGLE THYROID NODULE; F/U TECHNIQUE: Grayscale and color Doppler imaging of the thyroid gland. FINDINGS: GLAND SIZE: Right Lobe: Surgically absent Left Lobe: 4.1 x 1.6 x 1.5 cm Overall Parenchyma: heterogeneous Isthmus Thickness: 0.5 cm NODULES LEFT: # of nodules measured on left: 2 1. 1.1 X 0.9 x 0.8 cm, mid , Prior size: 1.0 x 1.0 x 0.9 cm TIRADS Score: 4 TIRADS Category 4: Composition: Solid or almost completely solid (2 points). Echogenicity: Hypoechoic (2 points). Shape: Wider than tall (0 points). Margin: Smooth (0 points). Echogenic foci: None or large comet-tail artifacts (0 points) Recommendation: If >1.5cm: FNA; If >1cm: Follow up at 1,2, 3,5 years 2. 0.9 X 0.6 x 0.7 cm, upper , Prior size: 1.0 x 0.8 x 0.7 cm TIRADS Score: 4 TIRADS Category 4: Composition: Solid or almost completely solid (2 points). Echogenicity: Hypoechoic (2 points). Shape: Wider than tall (0 points). Margin: Smooth (0 points). Echogenic foci: None or large comet-tail artifacts (0 points) Recommendation: If >1.5cm: FNA; If >1cm: Follow up at 1,2, 3,5 years ISTHMUS: # of nodules measured in the isthmus: 0 Bilateral neck scanned, no evidence of lymphadenopathy. Sub-centimeter nodules left lobe, largest tw o measured to compare to prior. IMPRESSION: * Left thyroid nodules that meet criteria for follow-up in one year. * Surgically absent right thyroid. TI-RADS assessment score and recommendation for follow-up based on appropriate scoring and treatment protocols. TR1 Benign No FNA TR2 Not suspicious No FNA TR3: If nodule size is ? 2.5 cm, FNA is recommended. If nodule size is ? 1.5 cm, follow-up imaging at 1, 3, and 5 years is recommended. TR4: If nodule size is ? 1.5 cm, FNA is recommended. If nodule size is ? 1.0 cm, follow-up imaging at 1, 2, 3, and 5 years is recommended. TR5: If nodule size is ? 1.0 cm, FNA is recommended. If nodule size is ? 0.5 cm, annual follow-up for up to 5 years is recommended. TR 1 thyroid nodules have a 0.3 % risk of malignancy. TR 2 thyroid nodules have a 1.5 % risk of malignancy. TR 3 thyroid nodules have a 4.8 % risk of malignancy. TR 4 thyroid nodules have a 9.1 % risk of malignancy. TR 5 thyroid nodules have a 35 % risk of malignancy. [email or web address] [facility], , 09/03/2024 4:57 PM
== END | disposition home or self-care (01) ==
LOC: RADUSWWP 16:18
PROVIDERS: ATTEND Family Medicine
DX: E04.2 Nontoxic multinodular goiter (principal)
CPT/HCPCS: 76536

== ENCOUNTER → 2024-10-07 | Outpatient (CLI) | payer MEDICARE ==
--- NOTE | 2024-10-08 07:53 | MM ---
Reason for Exam: Screening (asymptomatic). Last mammogram was performed 1 year(s) and 1 month(s) ago. Patient History: Menarche at age 12. First Full-Term at age 35. Late child-bearing (after 30). Hysterectomy at age 37. Postmenopausal. Maternal cousin had breast cancer, age 34. Maternal aunt had breast cancer, age 75. Risk Values: Joyce 5 year model risk: 2.4%. NCI Lifetime model risk: 10.0%. Prior Study Comparison: 08/16/2021 Bilateral MG 3D screening mammo w/cad, [facility]. 08/30/2022 Bilateral MG 3D screening mammo w/cad, [facility]. 09/01/2023 Bilateral MG 3D screening mammo w/cad, [facility]. Tissue Density: There are scattered areas of fibroglandular density. Findings: Analyzed By CAD. There is no suspicious group of microcalcifications or new suspicious mass in either breast. Overall Assessment: Benign, BI-RAD 2 Management: Screening Mammogram of both breasts in 1 year. . Patient should continue monthly self-breast exams. A clinical breast exam by your physician is recommended on an annual basis. This exam should not preclude additional follow-up of suspicious palpable abnormalities. Note on Joyce scores and lifetime risk: 1. A Joyce score greater than 3% is considered moderate risk. If this is the case, consider specialist referral to assess eligibility for a risk reducing agent. 2. If overall lifetime risk for the development of breast cancer is 20% or higher, the patient may qualify for future screening with alternating mammogram and breast MRI. [facility], , 10/08/2024 7:50 AM. Electronically signed and approved by: Reese Alarcon M.D. Radiologis
== END | disposition home or self-care (01) ==
LOC: RADMAMWWP 15:39
PROVIDERS: ATTEND Family Medicine
DX: Z12.31 Encounter for screening mammogram for malignant neoplasm of breast (principal); R92.323 Mammographic fibroglandular density, bilateral breasts; Z78.0 Asymptomatic menopausal state; Z80.3 Family history of malignant neoplasm of breast
CPT/HCPCS: 77063; 77067